=== PATIENT | female | born 1980 | race American Indian/Alaskan Native ===

== ENCOUNTER 2017-12-03 17:41 | Emergency (ER) | payer MEDICAID ==
[2017-12-03 17:55] VITALS: BP 124/61
[2017-12-03 19:39] LABS: Hemoglobin 6.7 gm/dl (10.1-14.3); Mean Corpuscular HGB Conc 33 % (30-34); Mean Corpuscular Hemoglobin 28 pg (28-32); Mean Corpuscular Volume 85 fl (79-97); Platelet Count 206 K/mm3 (140-440); Red Blood Count 2.35 M/mm3 (3.65-5.03); Red Cell Distribution Width 25.4 % (13.2-15.2)
[2017-12-03 19:40] LABS: Alanine Aminotransferase 24 units/L (7-56); Albumin 4.8 g/dL (3.9-5); BUN/Creatinine Ratio 18; Blood Urea Nitrogen 9 mg/dL (7-17); Calcium 9.2 mg/dL (8.4-10.2); Hemolysis Index 31
[2017-12-03 20:17] LABS: Basophils % (Manual) 0 % (0.0-1.8); Total Cells Counted 100
[2017-12-03 20:19] LABS: Large Platelets 1+; Sickle Cells 2+; Target Cells Few
[2017-12-03 20:20] LABS: Anisocytosis 1+; Platelet Estimate Consistent w Auto
--- NOTE | 2017-12-03 20:46 | Emergency Department Report ---
ED General Adult HPI - General Chief complaint: Pain General Stated complaint: SWOLLEN FEET/SHARP PAIN Time Seen by Provider: 12/03/17 20:38 Source: patient Mode of arrival: Ambulatory Limitations: No Limitations - History of Present Illness Initial comments: Patient is a 37-year-old black female with a past medical history of sickle cell who was here last month and admitted for pancreatitis and lower extremity swelling. Pacemaker device was treated with pain medicine she was discharged home with follow-up with primary care. Patient is yet to follow up with primary care physician at this time. Patient states she is having pain in the bilateral ankles. Patient states is been swollen for approximately 3-4 weeks. Patient states her one of her family members gave her some [id number] diuretics. Patient states the pain in her ankles are 10 out of 10 in severity. Patient denies any chest pain shortness of breath fevers chills nausea vomiting abdominal pains time. Patient states that she has noticed some jaundice and eyes however patient states she gets jaundiced when she is in a crisis this been going on her entire life. Patient again has no abdominal pain nausea or vomiting her main complaint is the pain in her legs. - Related Data Previous Rx's Medication Instructions Recorded Last Taken Type Furosemide [Lasix] 20 mg PO DAILY #7 tablet 12/03/17 Unknown Rx oxyCODONE /ACETAMINOPHEN [Percocet 1 tab PO Q6H PRN #14 tablet 12/03/17 Unknown Rx 5/325 mg] Allergies Allergy/AdvReac Type Severity Reaction Status Date / Time ceftriaxone [From Rocephin] Allergy Hives Verified 10/29/17 23:46 ED Review of Systems ROS: Stated complaint: SWOLLEN FEET/SHARP PAIN Other details as noted in HPI Comment: All other systems reviewed and negative ED Past Medical Hx - Past Medical History Hx Congestive Heart Failure: No Hx Diabetes: No Hx Sickle Cell Disease: Yes Hx Asthma: No - Surgical History Hx Cholecystectomy: Yes Additional Surgical History: SHOULDER SURG. /HYSTO/ HIP /LEFT THIGH/ - Social History Smoking Status: Current Every Day Smoker Substance Use Type: None - Medications Home Medications: Home Medications Medication Instructions Recorded Confirmed Last Taken Type Furosemide [Lasix] 20 mg PO DAILY #7 tablet 12/03/17 Unknown Rx oxyCODONE /ACETAMINOPHEN [Percocet 1 tab PO Q6H PRN #14 tablet 12/03/17 Unknown Rx 5/325 mg] ED Physical Exam - General Limitations: No Limitations General appearance: alert, in no apparent distress - Head Head exam: Present: atraumatic, normocephalic - Eye Eye exam: Present: scleral icterus - ENT ENT exam: Present: mucous membranes moist - Neck Neck exam: Present: normal inspection - Respiratory Respiratory exam: Present: normal lung sounds bilaterally. Absent: respiratory distress - Cardiovascular Cardiovascular Exam: Present: regular rate, normal rhythm. Absent: systolic murmur, diastolic murmur, rubs, gallop - GI/Abdominal GI/Abdominal exam: Present: soft, normal bowel sounds - Extremities Exam Extremities exam: Present: normal inspection, pedal edema, other (and has 2+ edema to the midcalf.) - Back Exam Back exam: Present: normal inspection - Neurological Exam Neurological exam: Present: alert, oriented X3 - Psychiatric Psychiatric exam: Present: normal affect, normal mood - Skin Skin exam: Present: warm, dry, intact, normal color. Absent: rash ED Course Vital Signs 12/03/17 17:55 Temperature 99.5 F Pulse Rate 95 H Respiratory 16 Rate Blood Pressure 124/61 [Right] O2 Sat by Pulse 100 Oximetry ED Medical Decision Making - Lab Data Result diagrams: 12/03/17 18:43 12/03/17 18:43 - Medical Decision Making Patient will be discharged home. 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 Patient also be given a low-dose Lasix for the next several days for her leg swelling. Critical care attestation.: If time is entered above; I have spent that time in minutes in the direct care of this critically ill patient, excluding procedure time. ED Disposition Clinical Impression: Dependent edema, Sickle cell crisis, Hyperbilirubinemia Disposition: DC-01 TO HOME OR SELFCARE Is pt being admited?: No Does the pt Need Aspirin: No Condition: Stable Instructions: Leg Edema (ED) Prescriptions: Furosemide [Lasix] 20 mg PO DAILY #7 tablet oxyCODONE /ACETAMINOPHEN [Percocet 5/325 mg] 1 tab PO Q6H PRN #14 tablet PRN Reason: Pain, Moderate (4-6) Referrals: WESTON HUMMEL MD [Staff Physician] - 3-5 Days (Hem/Onc ) ADRIEN MEYER DO [Staff Physician] - 3-5 Days (vascular doctor )
[2017-12-03] MEDS ORDERED: PERCOCET 5/325 PO ONE (20:54)
== END 2017-12-03 21:05 | disposition home or self-care (01) ==
LOC: ED 17:41
DX: R60.9 Edema, unspecified (principal); D57.00 Hb-SS disease with crisis, unspecified; E80.6 Other disorders of bilirubin metabolism; F17.200 Nicotine dependence, unspecified, uncomplicated; Z90.49 Acquired absence of other specified parts of digestive tract; Z88.1 Allergy status to other antibiotic agents
CPT/HCPCS: 36415; 80053; 85007; 85025; 99283

== ENCOUNTER 2018-02-05 13:38 | Inpatient (IN) | payer MEDICAID ==
[2018-02-05] MEDS ORDERED: D5NS 0.2% 1,000 ML IV SCH (14:00)
[2018-02-05 15:03] LABS: Basophils # (Auto) 0.1 K/mm3 (0.0-0.1); Eosinophils % (Auto) 0.4 % (0.0-4.3); Hematocrit 21.2 % (30.3-42.9); Hemoglobin 7.6 gm/dl (10.1-14.3); Lymphocytes # (Auto) 1.1 K/mm3 (1.2-5.4); Mean Corpuscular HGB Conc 36 % (30-34); Mean Corpuscular Hemoglobin 31 pg (28-32); Mean Corpuscular Volume 87 fl (79-97); Monocytes # (Auto) 0.3 K/mm3 (0.0-0.8); Red Blood Count 2.43 M/mm3 (3.65-5.03); Red Cell Distribution Width 22.6 % (13.2-15.2)
[2018-02-05 17:01] LABS: Platelet Count 182 K/mm3 (140-440)
[2018-02-05] MEDS ORDERED: MORPHINE IV ONE (18:03)
--- NOTE | 2018-02-05 18:07 | Emergency Department Report ---
ED General Adult HPI - General Chief complaint: Sickle Cell Crisis Stated complaint: SICKLE CELL Time Seen by Provider: 02/05/18 17:52 Source: patient Mode of arrival: Ambulatory Limitations: No Limitations - History of Present Illness Initial comments: Patient presents to emergency department with chief complaint of sickle cell crisis. Patient states that she had a fever this morning of 102 along with having body aches which are consistent with her sickle cell crisis. Patient denies having a cough or any burning or urination. She said her pain is very consistent to prior sickle cell crisis and recent of 9 out of 10 and denies anything making it better or worse. Patient denies chest pain, cough or dysuria. -: Gradual Radiation: non-radiation Severity scale (0 -10): 0 Quality: aching Consistency: constant Improves with: none Worsens with: none Associated Symptoms: denies other symptoms Treatments Prior to Arrival: none - Related Data Previous Rx's Medication Instructions Recorded Last Taken Type Furosemide [Lasix] 20 mg PO DAILY #7 tablet 12/03/17 Unknown Rx oxyCODONE /ACETAMINOPHEN [Percocet 1 tab PO Q6H PRN #14 tablet 12/03/17 Unknown Rx 5/325 mg] Allergies Allergy/AdvReac Type Severity Reaction Status Date / Time ceftriaxone [From Rocephin] Allergy Hives Verified 10/29/17 23:46 ED Review of Systems ROS: Stated complaint: SICKLE CELL Other details as noted in HPI Comment: All other systems reviewed and negative Constitutional: denies: chills, fever Eyes: denies: eye pain, eye discharge, vision change ENT: denies: ear pain, throat pain Respiratory: denies: cough, shortness of breath, wheezing Cardiovascular: denies: chest pain, palpitations Endocrine: no symptoms reported Gastrointestinal: denies: abdominal pain, nausea, diarrhea Genitourinary: denies: urgency, dysuria, discharge Musculoskeletal: denies: back pain, joint swelling, arthralgia Skin: denies: rash, lesions Neurological: denies: headache, weakness, paresthesias Psychiatric: denies: anxiety, depression Hematological/Lymphatic: denies: easy bleeding, easy bruising ED Past Medical Hx - Past Medical History Hx Congestive Heart Failure: No Hx Diabetes: No Hx Sickle Cell Disease: Yes Hx Asthma: No - Surgical History Hx Cholecystectomy: Yes Additional Surgical History: SHOULDER SURG. /HYSTO/ HIP /LEFT THIGH/ - Social History Smoking Status: Current Every Day Smoker Substance Use Type: None - Medications Home Medications: Home Medications Medication Instructions Recorded Confirmed Last Taken Type Furosemide [Lasix] 20 mg PO DAILY #7 tablet 12/03/17 Unknown Rx oxyCODONE /ACETAMINOPHEN [Percocet 1 tab PO Q6H PRN #14 tablet 12/03/17 Unknown Rx 5/325 mg] ED Physical Exam - General Limitations: No Limitations General appearance: alert, in no apparent distress - Head Head exam: Present: atraumatic, normocephalic - Eye Eye exam: Present: normal appearance - ENT ENT exam: Present: other (dry mucous membranes) - Neck Neck exam: Present: normal inspection - Respiratory Respiratory exam: Present: normal lung sounds bilaterally. Absent: respiratory distress, wheezes, rales - Cardiovascular Cardiovascular Exam: Present: normal rhythm, other (tachycardic). Absent: systolic murmur, diastolic murmur, rubs, gallop - GI/Abdominal GI/Abdominal exam: Present: soft, normal bowel sounds. Absent: distended, tenderness, guarding - Extremities Exam Extremities exam: Present: normal inspection - Back Exam Back exam: Present: normal inspection - Neurological Exam Neurological exam: Present: alert, oriented X3, CN II-XII intact. Absent: motor sensory deficit - Psychiatric Psychiatric exam: Present: normal affect, normal mood - Skin Skin exam: Present: warm, dry, intact, normal color. Absent: rash ED Course Vital Signs 02/05/18 02/05/18 02/05/18 13:53 17:49 18:00 Temperature 100.6 F H Pulse Rate 111 H 93 H 80 Respiratory 16 12 13 Rate Blood Pressure 102/61 121/64 Blood Pressure [Left] O2 Sat by Pulse 95 97 Oximetry 02/05/18 02/05/18 02/05/18 18:09 19:15 20:00 Temperature 100.1 F H 101.2 F H Pulse Rate 88 104 H Respiratory 13 21 Rate Blood Pressure 110/46 Blood Pressure 109/65 [Left] O2 Sat by Pulse 99 98 Oximetry 02/05/18 02/05/18 02/06/18 21:00 22:00 00:00 Temperature Pulse Rate 83 87 75 Respiratory 20 15 15 Rate Blood Pressure 100/42 96/39 100/51 Blood Pressure [Left] O2 Sat by Pulse 94 95 97 Oximetry 02/06/18 00:05 Temperature 99 F Pulse Rate Respiratory Rate Blood Pressure Blood Pressure [Left] O2 Sat by Pulse Oximetry ED Medical Decision Making - Lab Data Result diagrams: 02/05/18 14:35 - Medical Decision Making Patient received IV morphine, Toradol, and fentanyl without relief Patient also received 2 L of normal saline IV fluids Critical care attestation.: If time is entered above; I have spent that time in minutes in the direct care of this critically ill patient, excluding procedure time. ED Disposition Clinical Impression: Sickle cell crisis Disposition: OP ADMIT IP TO THIS HOSP Is pt being admited?: Yes Does the pt Need Aspirin: No Condition: Fair Referrals: PRIMARY CARE, [Primary Care Provider] - 3-5 Days Time of Disposition: 00:38
--- NOTE | 2018-02-05 19:26 | XRay Report ---
FINAL REPORT EXAM: XR CHEST 1V AP HISTORY: fever TECHNIQUE: Single, portable chest x-ray. PRIORS: 29 October 2017. FINDINGS: Cardiac silhouette prominent, which may be due in part to portable technique, but stable. Lungs are hyperinflated, without significant vascular congestion. No focal consolidation or apparent pneumothorax. Degenerative change in left shoulder and status post right shoulder arthroplasty again noted. Mild dextroconvex curvature of thoracic spine, also stable. IMPRESSION: 1. Stable examination. No acute consolidation.
[2018-02-05] MEDS ORDERED: NACL 0.9% 1000 ML 1,000 ML ONE (19:52)
[2018-02-05] MEDS ORDERED: BENADRYL ONE (19:52)
[2018-02-05] MEDS ORDERED: NACL 0.9% 1000 ML 1,000 ML IV ONE ×2 (19:53→21:05)
[2018-02-05] MEDS ORDERED: TYLENOL PO ONE (19:53)
[2018-02-05] MEDS ORDERED: BENADRYL IV ONE (19:53)
[2018-02-05] MEDS ORDERED: ZOFRAN IM ONE (21:05)
[2018-02-05 21:44] LABS: Bilirubin,Urine NEG (Negative); Blood,Urine SM (Negative); Color,Urine Yellow (Yellow); Mucus,Urine FEW /HPF; Protein,Urine <15 mg/dL mg/dL (Negative)
[2018-02-05] MEDS ORDERED: TORADOL IV ONE (23:21)
[2018-02-05] MEDS ORDERED: SUBLIMAZE IV ONE (23:21)
[2018-02-06] MEDS ORDERED: PERCOCET 5/325 PO PRN (03:49)
[2018-02-06] MEDS ORDERED: SODIUM CHLORIDE FLUSH SYRINGE 10 ML IV PRN (03:49)
--- NOTE | 2018-02-06 03:49 | Event Note ---
Date: 02/06/18 See dictated history and physical in the reports Sickle cell crisis IV fluids Pain management Check reticulocyte count
--- NOTE | 2018-02-06 04:31 | History and Physical Report ---
CHIEF COMPLAINT: Pain all over for 2 days. HISTORY OF PRESENT ILLNESS: A 37-year-old black female with history of sickle cell anemia and sickle cell crisis, comes in for pain all over for the last 2 days. Pain is about 10 on a scale of 1-10. Pain is more retrosternal and bilateral hips. Also, fever of 102 this morning. No dysuria. No cough. Retrosternal chest pain present. Bilateral hip pain present. Pain is sharp. No exacerbating or relieving factors. Pain is 10/10. PAST MEDICAL HISTORY: Significant for sickle cell disease. PAST SURGICAL HISTORY: Shoulder surgery, hysterectomy, hip surgery and left thigh surgery. SOCIAL HISTORY: Smokes over a pack a day. FAMILY HISTORY: Hypertension. REVIEW OF SYSTEMS: Significant for pain all over, especially chest and bilateral hips. Otherwise, the 14-point review of systems was negative. PHYSICAL EXAMINATION: GENERAL: Middle-aged female, cooperative during examination, in mild distress secondary to pain. VITAL SIGNS: Blood pressure is 107/57, temperature is 98.9, pulse is 80, respirations are 15 and sats are 96%. HEENT: Pale mucous membranes. Pale conjunctivae. Tongue pale. NECK: Supple, no lymphadenopathy, no thyromegaly. LUNGS: Clear to auscultation and percussion. Good air entry. CARDIOVASCULAR: S1, S2 heard. No gallop, no murmur and no rub. Apical impulse in left fifth intercostal space and midclavicular line. ABDOMEN: Soft and benign. No hepatosplenomegaly. No guarding, no rigidity. Hernial orifices are normal. EXTREMITIES: Good pedal pulses. No pedal edema. CENTRAL NERVOUS SYSTEM: Alert and oriented x 4, nonfocal exam. SKIN: Normal. LABORATORY DATA: Significant for white count of 8600, hemoglobin of 7.6, hematocrit of 21.2 and platelet count of 182,000. Urine negative for infection. Retic count is 6.25. IMAGING DATA: Chest x-ray was normal. No acute findings. ASSESSMENT AND PLAN: 1. Sickle cell crisis. IV fluids and IV morphine every 3 hours p.r.n. Monitor retic count. Transfuse if hemoglobin and hematocrit is less than 7. 2. Pain management. The patient on IV fluids and IV morphine every 3 hours up to 4 mg every 3 hours. IV Zofran also every 3 hours for 4 mg. 3. 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 Transfuse if hemoglobin and hematocrit is less than 7.6 and 21.2. 4. Deep venous thrombosis prophylaxis, Lovenox 40 mg subcutaneous daily. 5. Hematology/Oncology consult by Dr. Gray. JOB# [id number] VSM/NTS
[2018-02-06] MEDS: MORPHINE IV PRN ×4 (05:43→21:55)
[2018-02-06] MEDS: REGLAN IV PRN ×3 (05:44→20:12)
[2018-02-06] MEDS: D5NS 1,000 ML IV SCH ×2 (05:45→21:49)
[2018-02-06] MEDS: BENADRYL IV PRN ×4 (07:03→22:35)
--- NOTE | 2018-02-06 10:49 | Progress Note ---
Assessment and Plan Assessment and plan: SIRS. Patient with significant fever. We will start empiric antibiotics of Levaquin. Follow-up blood cultures. Urinalysis is negative. Sickle cell vaso-occlusive crisis. Continue IV fluid hydration, pain control and supportive care Tobacco abuse. Patient will be counseled on smoking cessation. History Interval history: Patient still complains of pain. Hospitalist Physical - Constitutional Vitals: Temp Pulse Resp BP Pulse Ox 98.9 F 71 20 102/54 97 02/06/18 03:05 02/06/18 03:30 02/06/18 04:00 02/06/18 03:30 02/06/18 04:00 General appearance: Present: no acute distress, well-nourished - EENT Eyes: Present: PERRL, EOM intact ENT: hearing intact, clear oral mucosa, dentition normal - Neck Neck: Present: supple, normal ROM - Respiratory Respiratory effort: normal Respiratory: bilateral: CTA - Cardiovascular Rhythm: regular Heart Sounds: Present: S1 & S2. Absent: gallop, rub - Extremities Extremities: no ischemia, No edema, Full ROM - Abdominal General gastrointestinal: soft, non-tender, non-distended, normal bowel sounds - Integumentary Integumentary: Present: clear, warm, dry - Neurologic Neurologic: CNII-XII intact, moves all extremities Results - Labs CBC & Chem 7: 02/05/18 14:35 Labs: Laboratory Last Values WBC 8.6 K/mm3 (4.5-11.0) 02/05/18 14:35 RBC 2.43 M/mm3 (3.65-5.03) L 02/05/18 14:35 Hgb 7.6 gm/dl (10.1-14.3) L 02/05/18 14:35 Hct 21.2 % (30.3-42.9) L 02/05/18 14:35 MCV 87 fl (79-97) 02/05/18 14:35 MCH 31 pg (28-32) 02/05/18 14:35 MCHC 36 % (30-34) H 02/05/18 14:35 RDW 22.6 % (13.2-15.2) H 02/05/18 14:35 Plt Count 182 K/mm3 (140-440) 02/05/18 14:35 Lymph % (Auto) 13.0 % (13.4-35.0) L 02/05/18 14:35 [place] % (Auto) 3.0 % (0.0-7.3) 02/05/18 14:35 Eos % (Auto) 0.4 % (0.0-4.3) 02/05/18 14:35 Baso % (Auto) 1.0 % (0.0-1.8) 02/05/18 14:35 Lymph # 1.1 K/mm3 (1.2-5.4) L 02/05/18 14:35 [place] # 0.3 K/mm3 (0.0-0.8) 02/05/18 14:35 Eos # 0.0 K/mm3 (0.0-0.4) 02/05/18 14:35 Baso # 0.1 K/mm3 (0.0-0.1) 02/05/18 14:35 Seg Neutrophils % 82.6 % (40.0-70.0) H 02/05/18 14:35 Seg Neutrophils # 7.1 K/mm3 (1.8-7.7) 02/05/18 14:35 Percent Retic 6.25 % (0.78-2.58) H 02/05/18 14:35 Hemoglobin A1c < 4.2 % (4-6) 02/06/18 06:00 Urine Color Yellow (Yellow) 02/05/18 20:53 Urine Turbidity Clear (Clear) 02/05/18 20:53 Urine pH 5.0 (5.0-7.0) 02/05/18 20:53 Ur Specific [place] 1.012 (1.003-1.030) 02/05/18 20:53 Urine Protein <15 mg/dl mg/dL (Negative) 02/05/18 20:53 Urine Glucose (UA) Neg mg/dL (Negative) 02/05/18 20:53 Urine Ketones Neg mg/dL (Negative) 02/05/18 20:53 Urine Blood Sm (Negative) 02/05/18 20:53 Urine Nitrite Neg (Negative) 02/05/18 20:53 Urine Bilirubin Neg (Negative) 02/05/18 20:53 Urine Urobilinogen 4.0 mg/dL (<2.0) 02/05/18 20:53 Ur Leukocyte Esterase Neg (Negative) 02/05/18 20:53 Urine WBC (Auto) 1.0 /HPF (0.0-6.0) 02/05/18 20:53 Urine RBC (Auto) 1.0 /HPF (0.0-6.0) 02/05/18 20:53 U Epithel Cells (Auto) 1.0 /HPF (0-13.0) 02/05/18 20:53 Urine Mucus Few /HPF 02/05/18 20:53
[2018-02-06] MEDS: SODIUM CHLORIDE FLUSH SYRINGE 10 ML IV SCH ×2 (10:57→21:54)
[2018-02-06] MEDS: PEPCID IV SCH ×2 (10:57→21:54)
[2018-02-06] MEDS ORDERED: LEVAQUIN 750MG/150ML 750 MG/150 ML BAG IV ONE ×2 (10:59→17:00)
[2018-02-06] MEDS: ZOFRAN IV PRN ×2 (12:09→21:54)
[2018-02-06] MEDS: TYLENOL PO PRN ×2 (19:30→21:55)
[2018-02-07] MEDS: MORPHINE IV PRN ×7 (02:26→21:15)
[2018-02-07] MEDS: ZOFRAN IV PRN ×7 (02:26→21:15)
[2018-02-07] MEDS: BENADRYL IV PRN ×3 (04:31→18:22)
[2018-02-07 06:57] LABS: Basophils # (Auto) 0.1 K/mm3 (0.0-0.1); Eosinophils # (Auto) 0.3 K/mm3 (0.0-0.4); Eosinophils % (Auto) 4.8 % (0.0-4.3); Monocytes # (Auto) 0.2 K/mm3 (0.0-0.8); Monocytes % (Auto) 3.8 % (0.0-7.3)
[2018-02-07 07:09] LABS: Alanine Aminotransferase 161 units/L (7-56); Albumin 3.7 g/dL (3.9-5); BUN/Creatinine Ratio 12; Blood Urea Nitrogen 7 mg/dL (7-17); Calcium 8.5 mg/dL (8.4-10.2); Hemolysis Index 5
[2018-02-07 07:34] LABS: Mean Corpuscular HGB Conc 34 % (30-34); Mean Corpuscular Hemoglobin 30 pg (28-32); Mean Corpuscular Volume 88 fl (79-97); Platelet Count 137 K/mm3 (140-440); Red Blood Count 1.96 M/mm3 (3.65-5.03); Red Cell Distribution Width 23.6 % (13.2-15.2)
[2018-02-07 07:35] LABS: Hemoglobin 5.9 gm/dl (10.1-14.3); Lymphocytes # (Auto) 1.5 K/mm3 (1.2-5.4); Lymphocytes % (Auto) 24.3 % (13.4-35.0)
[2018-02-07 07:36] LABS: Hematocrit 17.2 % (30.3-42.9)
[2018-02-07] MEDS: PEPCID IV SCH ×2 (10:39→21:38)
[2018-02-07] MEDS: SODIUM CHLORIDE FLUSH SYRINGE 10 ML IV SCH ×2 (10:39→21:39)
[2018-02-07] MEDS ORDERED: NACL 0.9% 500 ML 500 ML IV ONE (11:05)
--- NOTE | 2018-02-07 12:10 | Progress Note ---
Assessment and Plan Assessment and plan: SIRS. Patient with significant fever. We will start empiric antibiotics of Levaquin. Follow-up blood cultures. Urinalysis is negative. Sickle cell vaso-occlusive crisis. Continue IV fluid hydration, pain control and supportive care Sickle cell anemia. Patient's hemoglobin is 5.9. We will transfuse 2 units of PRBCs. Hematology consultation with Dr. Ceja. Patient follows Dr. Ceja as an outpatient. Tobacco abuse. Patient will be counseled on smoking cessation. History Interval history: Patient still complains of pain. Hospitalist Physical - Constitutional Vitals: Temp Pulse Resp BP Pulse Ox 98.9 F 69 20 101/49 94 02/07/18 05:24 02/07/18 05:24 02/07/18 11:34 02/07/18 06:53 02/07/18 05:24 General appearance: Present: no acute distress, well-nourished - EENT Eyes: Present: PERRL, EOM intact ENT: hearing intact, clear oral mucosa, dentition normal - Neck Neck: Present: supple, normal ROM - Respiratory Respiratory effort: normal Respiratory: bilateral: CTA - Cardiovascular Rhythm: regular Heart Sounds: Present: S1 & S2. Absent: gallop, rub - Extremities Extremities: no ischemia, No edema, Full ROM - Abdominal General gastrointestinal: soft, non-tender, non-distended, normal bowel sounds - Integumentary Integumentary: Present: clear, warm, dry - Neurologic Neurologic: CNII-XII intact, moves all extremities Results - Labs CBC & Chem 7: 02/07/18 05:46 02/07/18 05:46 Labs: Laboratory Last Values WBC 6.4 K/mm3 (4.5-11.0) 02/07/18 05:46 RBC 1.96 M/mm3 (3.65-5.03) L 02/07/18 05:46 Hgb 5.9 gm/dl (10.1-14.3) L* 02/07/18 05:46 Hct 17.2 % (30.3-42.9) L* 02/07/18 05:46 MCV 88 fl (79-97) 02/07/18 05:46 MCH 30 pg (28-32) 02/07/18 05:46 MCHC 34 % (30-34) 02/07/18 05:46 RDW 23.6 % (13.2-15.2) H 02/07/18 05:46 Plt Count 137 K/mm3 (140-440) L 02/07/18 05:46 Lymph % (Auto) 24.3 % (13.4-35.0) 02/07/18 05:46 [place] % (Auto) 3.8 % (0.0-7.3) 02/07/18 05:46 Eos % (Auto) 4.8 % (0.0-4.3) H 02/07/18 05:46 Baso % (Auto) 1.0 % (0.0-1.8) 02/07/18 05:46 Lymph # 1.5 K/mm3 (1.2-5.4) 02/07/18 05:46 [place] # 0.2 K/mm3 (0.0-0.8) 02/07/18 05:46 Eos # 0.3 K/mm3 (0.0-0.4) 02/07/18 05:46 Baso # 0.1 K/mm3 (0.0-0.1) 02/07/18 05:46 Seg Neutrophils % 66.1 % (40.0-70.0) 02/07/18 05:46 Seg Neutrophils # 4.2 K/mm3 (1.8-7.7) 02/07/18 05:46 Percent Retic 6.25 % (0.78-2.58) H 02/05/18 14:35 Sodium 139 mmol/L (137-145) 02/07/18 05:46 Potassium 3.5 mmol/L (3.6-5.0) L 02/07/18 05:46 Chloride 104.6 mmol/L (98-107) 02/07/18 05:46 Carbon Dioxide 23 mmol/L (22-30) 02/07/18 05:46 Anion Gap 15 mmol/L 02/07/18 05:46 BUN 7 mg/dL (7-17) 02/07/18 05:46 Creatinine 0.6 mg/dL (0.7-1.2) L 02/07/18 05:46 Estimated GFR > 60 ml/min 02/07/18 05:46 BUN/Creatinine Ratio 12 % 02/07/18 05:46 Glucose 97 mg/dL (65-100) 02/07/18 05:46 Hemoglobin A1c < 4.2 % (4-6) 02/06/18 06:00 Calcium 8.5 mg/dL (8.4-10.2) 02/07/18 05:46 Total Bilirubin 3.60 mg/dL (0.1-1.2) H 02/07/18 05:46 AST 192 units/L (5-40) H 02/07/18 05:46 ALT 161 units/L (7-56) H 02/07/18 05:46 Alkaline Phosphatase 136 units/L (35-129) H 02/07/18 05:46 Total Protein 6.0 g/dL (6.3-8.2) L 02/07/18 05:46 Albumin 3.7 g/dL (3.9-5) L 02/07/18 05:46 Albumin/Globulin Ratio 1.6 % 02/07/18 05:46 Urine Color Yellow (Yellow) 02/05/18 20:53 Urine Turbidity Clear (Clear) 02/05/18 20:53 Urine pH 5.0 (5.0-7.0) 02/05/18 20:53 Ur Specific [place] 1.012 (1.003-1.030) 02/05/18 20:53 Urine Protein <15 mg/dl mg/dL (Negative) 02/05/18 20:53 Urine Glucose (UA) Neg mg/dL (Negative) 02/05/18 20:53 Urine Ketones Neg mg/dL (Negative) 02/05/18 20:53 Urine Blood Sm (Negative) 02/05/18 20:53 Urine Nitrite Neg (Negative) 02/05/18 20:53 Urine Bilirubin Neg (Negative) 02/05/18 20:53 Urine Urobilinogen 4.0 mg/dL (<2.0) 02/05/18 20:53 Ur Leukocyte Esterase Neg (Negative) 02/05/18 20:53 Urine WBC (Auto) 1.0 /HPF (0.0-6.0) 02/05/18 20:53 Urine RBC (Auto) 1.0 /HPF (0.0-6.0) 02/05/18 20:53 U Epithel Cells (Auto) 1.0 /HPF (0-13.0) 02/05/18 20:53 Urine Mucus Few /HPF 02/05/18 20:53
[2018-02-07] MEDS: D5NS 1,000 ML IV SCH (17:47)
[2018-02-08] MEDS: BENADRYL IV PRN ×3 (01:37→14:12)
[2018-02-08] MEDS: MORPHINE IV PRN ×5 (01:37→14:12)
[2018-02-08] MEDS: ZOFRAN IV PRN ×5 (01:38→14:12)
[2018-02-08] MEDS ORDERED: NACL 0.9% 500 ML 500 ML IV ONE (05:00)
[2018-02-08] MEDS: PEPCID IV SCH (11:06)
[2018-02-08] MEDS: SODIUM CHLORIDE FLUSH SYRINGE 10 ML IV SCH (11:07)
--- NOTE | 2018-02-08 11:23 | Discharge Summary ---
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 Patient denied having a cough or any burning or urination. She said her pain was very consistent to prior sickle cell crisis and recent of 9 out of 10 and denied anything making it better or worse. Patient denied chest pain, cough or dysuria. Pt was admitted with dx of SSC pain crisis and SIRS. Pt has no sign of infection with neg U/A, CXR and blood cx. Pt was noted to have significant anemia with hgb 5.9 that was treated with PRBCs and improvement. Vaso- occlusive crisis resolved with IVF and pain control. D/C time 32 min. Disposition: DC-01 TO HOME OR SELFCARE Time spent for discharge: 32 - Discharge Diagnoses (1) SIRS (systemic inflammatory response syndrome) Status: Acute (2) Sickle cell crisis Status: Acute (3) Anemia Status: Acute Qualifiers: Anemia type: unspecified type Qualified Code(s): D64.9 - Anemia, unspecified (4) Dehydration Status: Acute Core Measure Documentation - Palliative Care Palliative Care/ Comfort Measures: Not Applicable - Core Measures Any of the following diagnoses?: none Exam - Constitutional Vitals: Temp Pulse Resp BP Pulse Ox 98.7 F 67 20 111/64 96 02/08/18 10:41 02/08/18 10:41 02/08/18 11:06 02/08/18 10:41 02/08/18 06:45 General appearance: Present: no acute distress, well-nourished - EENT Eyes: Present: PERRL ENT: hearing intact, clear oral mucosa - Neck Neck: Present: supple, normal ROM - Respiratory Respiratory effort: normal Respiratory: bilateral: CTA - Cardiovascular Heart Sounds: Present: S1 & S2. Absent: rub, click - Extremities Extremities: pulses symmetrical, No edema Peripheral Pulses: within normal limits - Abdominal General gastrointestinal: Present: soft, non-tender, non-distended, normal bowel sounds Female genitourinary: Present: normal - Integumentary Integumentary: Present: clear, warm, dry - Musculoskeletal Musculoskeletal: gait normal, strength equal bilaterally - Psychiatric Psychiatric: appropriate mood/affect, intact judgment & insight - Neurologic Neurologic: CNII-XII intact, moves all extremities Plan Activity: no restrictions Weight Bearing Status: Full Weight Bearing Diet: regular Follow up with: PRIMARY CAREMD [Primary Care Provider] - 3-5 Days WESTON HUMMEL MD [Staff Physician] - 7 Days Prescriptions: B12/Levomefolate Calcium/B-6 [Folbic Rf Tablet] 1 each PO DAILY #30 tablet Hydroxyurea [Hydrea] 500 mg PO DAILY #30 capsule oxyCODONE /ACETAMINOPHEN [Percocet 5/325 mg] 1 tab PO Q6H PRN #20 tablet PRN Reason: Pain, Moderate (4-6)
[2018-02-08 12:40] VITALS: BP 99/57
[2018-02-08 15:32] LABS: Basophils % (Auto) 0.4 % (0.0-1.8); Eosinophils # (Auto) 0.6 K/mm3 (0.0-0.4); Eosinophils % (Auto) 9.2 % (0.0-4.3); Hematocrit 25.1 % (30.3-42.9); Hemoglobin 8.1 gm/dl (10.1-14.3); Lymphocytes # (Auto) 2.7 K/mm3 (1.2-5.4); Lymphocytes % (Auto) 41.3 % (13.4-35.0); Mean Corpuscular HGB Conc 32 % (30-34); Mean Corpuscular Hemoglobin 30 pg (28-32); Mean Corpuscular Volume 94 fl (79-97); Monocytes # (Auto) 0.6 K/mm3 (0.0-0.8); Monocytes % (Auto) 8.9 % (0.0-7.3); Platelet Count 138 K/mm3 (140-440); Red Blood Count 2.66 M/mm3 (3.65-5.03); Red Cell Distribution Width 20.9 % (13.2-15.2)
--- NOTE | 2018-02-08 16:58 | Hem/Onc Progress Note ---
Subjective Date of service: 02/08/18 Interval history: Hgb improved with transfusion. Low retic count noted. Nurse reports patient had been feeling well all day but only became agitated when discharged. Suspect patient is malingering. -f/u with Dr Ceaj if symptoms persist Objective - Constitutional Vitals: Last Vital Signs Temp 98.8 F 02/08/18 12:13 Pulse 67 02/08/18 12:13 Resp 20 02/08/18 14:12 BP 99/57 02/08/18 12:13 Pulse Ox 94 02/08/18 12:13 Pain Intensity (0-10): 3/10 Performance status: 0-fully active - EENT Eyes: PERRL, EOM intact ENT: hearing intact, clear oral mucosa, dentition normal - Neck Neck: supple, normal ROM - Respiratory Respiratory effort: Positive: normal Respiratory: bilateral: CTA - Cardiovascular Rhythm: regular Extremities: No edema (Patient is agitated, tearful.) - Labs Lab Results: Laboratory Results - last 24 hr 02/07/18 02/08/18 12:24 14:21 WBC 6.6 RBC 2.66 L Hgb 8.1 L Hct 25.1 L D MCV 94 MCH 30 MCHC 32 RDW 20.9 H Plt Count 138 L Lymph % (Auto) 41.3 H Ida % (Auto) 8.9 H Eos % (Auto) 9.2 H Baso % (Auto) 0.4 Lymph # 2.7 Ida # 0.6 Eos # 0.6 H Baso # 0.0 Seg Neutrophils % 40.2 Seg Neutrophils # 2.6 Blood Type O POSITIVE Antibody Screen Negative Crossmatch See Detail
== END 2018-02-08 17:30 | disposition home or self-care (01) | DRG 812 ==
LOC: ED 13:38 → 3A 02-06 00:35
PROVIDERS: ADMIT Internal Medicine; ATTEND Hospitalist
PROC: 30233N1 Transfusion of Nonautologous Red Blood Cells into Peripheral Vein, Percutaneous Approach (ICD-10-PCS; principal; 2018-02-08)
DX: D57.00 Hb-SS disease with crisis, unspecified (principal); R65.10 Systemic inflammatory response syndrome (SIRS) of non-infectious origin without acute organ dysfunction; E86.0 Dehydration; F17.210 Nicotine dependence, cigarettes, uncomplicated; Z88.1 Allergy status to other antibiotic agents; Z90.710 Acquired absence of both cervix and uterus; Z82.49 Family history of ischemic heart disease and other diseases of the circulatory system; Z71.6 Tobacco abuse counseling
CPT/HCPCS: 36415; 71045; 80053; 81001; 83036; 85025; 85045; 85660; 86850; 86900; 86901; 86920; 87040; 96372; 96374; 96375; 96376; J1200; J1885; J1956; J2270; J2405; J2765; J3010; J7030; J7040; J7042; P9016